=== PATIENT | female | born 1975 | race Caucasian/White ===

== ENCOUNTER 2018-08-20 10:37 | Outpatient (CLI) | payer MEDICARE, MEDICAID ==
--- NOTE | 2018-08-20 11:28 | MRI ---
MRI lumbar spine noncontrast HISTORY: Low back pain with right leg radiculopathy. Prior compression fracture 2001. FINDINGS: Conus medullaris is normal in appearance. There is partial compression of the L1 superior e ndplate with loss of height by approximately 20%. No residual edema. Minimal retropulsion. The central canal and neural foramina are patent. There is desiccation in the lower S3 intervertebral discs. Minimal posterior disc bulge at each level . No focal herniation. Mild hypertrophy of the lower facets. No focal nerve root compression. IMPRESSION: Mild chronic superior end plate compression at the L1 level without residual edema. Mild degenerative changes lower lumbar spine. No focal disc herniation or nerve root compression.
--- NOTE | 2018-08-20 11:32 | RAD ---
Lumbar spine 4 views HISTORY: Low back pain. Prior compression fracture. FINDINGS: There are 5 lumbar type vertebrae. Pedicles are intact. Compression of the L1 superior end plate is present with loss of height by approximately 20%. Minimal retropulsion. No edema was present on MRI of the same date. Other vertebral body heights and alignment are maintained. Osteophytosis of the lower facets. No abno rmal translational motion upon flexion or extension. Calcification over the arterial structures. IMPRESSION: Mild chronic compression of the L1 superior endplate. Mild degenerative changes lower lumbar spine. No acute osseous abnormalities are demonstrated. Atherosclerosis.
== END 2018-08-20 10:38 | disposition home or self-care (01) ==
LOC: SCSMRI 10:37
PROVIDERS: ATTEND Anesthesiology Pain Medicine
DX: M48.062 Spinal stenosis, lumbar region with neurogenic claudication (principal); M47.816 Spondylosis without myelopathy or radiculopathy, lumbar region; I70.90 Unspecified atherosclerosis
CPT/HCPCS: 72110; 72148